=== PATIENT | male | born 1970 | race Caucasian/White ===

== ENCOUNTER 2022-07-16 13:59 | Outpatient (CLI) | payer OTHER, SELFPAY ==
[2022-07-16 15:58] LABS: Influenza A QL RT-PCR Negative (Negative); Influenza B QL RT-PCR Negative (Negative); SARS-CoV-2 RNA PCR Positive
== END 2022-07-16 14:00 | disposition home or self-care (01) ==
LOC: ANHLAB 14:00
PROVIDERS: PCP Family Medicine; Visit Provider Family Medicine
DX: U07.1 COVID-19 (principal)
CPT/HCPCS: 87636

== ENCOUNTER 2024-02-24 10:05 | Outpatient (CLI) | payer OTHER, SELFPAY ==
--- NOTE | 2024-02-28 14:36 | WPDHOMESLEEP ---
Sleep Study - Home Unattended Date of Study: 02/24/24 Ordering Provider: Fredy Thompson MD Interpreting Provider: Arlette Chew MD Home Sleep Study Type: Watch PAT Height: 1.78 m Weight: 99.337 kg Body Mass Index: 31.4 Neck Circumference (inches): 18 [place]: 17 Reason for Sleep Study Hypersomnolence Sleep History Logan Melendez is a 53-year-old man who has excessive daytime sleepiness. His medical comorbidities include hypertension, diabetes mellitus with retinopathy, and non alcoholic steatohepatitis. His reports witnessed apneas. There is a family history of obstructive sleep apnea. He does have episodes of choking and gasping at night for breath. He has difficulty breathing if he is on his back. Does not awaken with a morning headache. He does wake with a sore dry mouth. He has nocturnal heartburn. He has 2 episodes of nocturia on average. He does not use sedatives to initiate sleep. He does not generally have problems falling asleep but he has difficulty remaining asleep. He also has difficulty returning to sleep when he wakes during the night. He wakes up earlier than expected. He does not grind his teeth or clench his teeth at night. He does not have problems with uncomfortable feelings in his legs or kicking at night. His usual bedtime is midnight falling asleep within 15 minutes spending 8 hours in bed and approximately 7 hours sleeping. His sleep is not restorative. He has frequent excessive daytime sleepiness and fatigue. Does not feel refreshed upon awakening. He has drowsy driving. He feels more alert in the evening compared to the morning. He does not nap. Habits: Tobacco: never smoker Caffeine: 1-2 cups daily Alcohol: none PMFSH Past Medical History Medical History Diabetic retinopathy associated with type 2 diabetes mellitus Obesity (BMI 30.0-34.9) Family History Family History Sibling Diabetes mellitus Acute myocardial infarction Family history of congestive heart failure Father Diabetes mellitus Hypertension Cerebrovascular accident Family history of seizure disorder Family history of atrial fibrillation Family history of congestive heart failure Mother Family history of coronary artery disease Other Depression Social History Social History Social History: Caffeine- daily Smoking status: Never smoker Alcohol intake: never Lack of Transportation: No Lack of Food: Never True Current Housing: I Have Housing Concerned About Future Housing: No Difficulty Paying Gas/Electric Bills: No Difficulty Paying for Meds: No Currently Unemployed: No Education: Associate Degree Difficulty w/ Childcare or Family Care: No Medications Home Medications Medication Instructions Recorded Confirmed Type aspirin 81 mg tablet,delayed 81 mg PO DAILY 05/04/19 01/06/24 History release (Adult Low Dose Aspirin) blood-glucose meter,continuous #1 ea 01/11/22 01/06/24 Rx (Dexcom G6 [employer]ician) bupropion HCl 300 mg 24 hr tablet, See Rx Instructions .Route 03/12/22 01/06/24 Rx extended release .COMPLEX #90 tabs sertraline 100 mg tablet See Rx Instructions .Route 11/27/22 01/06/24 Rx .COMPLEX #90 tabs aripiprazole 5 mg tablet (Abilify) 10 mg PO QHS #30 tabs 01/07/23 01/06/24 Rx blood-glucose sensor (Dexcom G7 #9 ea 01/28/23 01/06/24 Rx Sensor device) tadalafil 20 mg tablet 20 mg PO DAILY PRN sexual activity 02/21/23 01/06/24 Rx 30 days #6 tabs pantoprazole 40 mg tablet,delayed 40 mg PO QAM #90 tabs 09/06/23 01/06/24 Rx release dapagliflozin propanediol 10 mg 10 mg PO DAILY #90 tabs 10/29/23 01/06/24 Rx tablet (Farxiga) lisinopril 40 mg tablet 40 mg PO DAILY #90 tabs 10/29/23 01/06/24 Rx metformin 1,000 mg
[2024-02-28 18:46] VITALS: BMI 31.4
== END 2024-02-26 10:05 | disposition home or self-care (01) ==
LOC: ANHCSM 10:11
PROVIDERS: PCP Family Medicine; Visit Provider Family Medicine
DX: G47.33 Obstructive sleep apnea (adult) (pediatric) (principal)
CPT/HCPCS: 95800

== ENCOUNTER 2024-04-01 09:36 | Outpatient (CLI) | payer OTHER, SELFPAY ==
--- NOTE | 2024-04-01 09:43 | ECHO_ITS ---
Patient Info Name: Logan Melendez Age: 53 years : 1970 Gender: Male Ht: 72 in Wt: 220 lbs BSA: 2.27 m2 HR: 78 bpm BP: 153 / 88 mmHg Technical Quality: Good Exam Date: 04/01/2024 10:04 AM Exam Location: Echo Lab Patient Status: Outpatient Admit Date: 04/01/2024 Staff Ordering Physician: Fredy Thompson MD Corporate Officer: Diony Day RDCS Attending Provider: Fredy Thompson MD Referring Physician: Jay QUINTANA; Exam Type: CA echo doppler color flow Study Info Indications - unsp a fib Complete two-dimensional, color flow and Doppler transthoracic echocardiogram is performed. Summary 1. Complete two-dimensional, color flow and Doppler transthoracic echocardiogram is performed. 2. Left ventricular chamber dimension is normal. 3. Left ventricular systolic function is normal, estimated at 60-65%. 4. The left ventricular diastolic function is grade I diastolic dysfunction. 5. E/e' 9 is minimally elevated. 6. Left atrial chamber dimension is mildly enlarged. 7. There is trace mitral valve regurgitation. 8. There is trace tricuspid valve regurgitation. 9. No pulmonary hypertension, estimated pulmonary arterial systolic pressure is 19 mmHg. Left Ventricle E/e' 9 is minimally elevated. Left ventricular chamber dimension is normal. Left ventricular systolic function is normal, estimated at 60-65%. The left ventricular diastolic function is grade I diastolic dysfunction. Right Ventricle Right ventricular systolic function is normal and with normal TAPSE 2.2 cm. Right ventricular chamber dimension is normal. Left Atria Left atrial chamber dimension is mildly enlarged. Right Atria Right atrial chamber dimension is normal. Aortic Valve The aortic valve is trileaflet. There is no aortic valve stenosis. There is no aortic valve regurgitation. Pulmonic Valve There is no pulmonic regurgitation. Mitral Valve There is no mitral valve stenosis. There is trace mitral valve regurgitation. Tricuspid Valve There is trace tricuspid valve regurgitation. No pulmonary hypertension, estimated pulmonary arterial systolic pressure is 19 mmHg. Pericardium/Pleural There is no pericardial effusion. Inferior Vena Cava Normal inferior vena cava with >50% collapse upon inspiration consistent with normal right atrial pressure, 5 mmHg. Aorta The aortic root size at the sinus of Valsalva is normal. Left Ventricular Outflow Tract Name Value Normal LVOT 2D LVOT Diameter 2.0 cm LVOT Doppler LVOT Peak Gradient 3 mmHg LVOT Mean Gradient 2 mmHg LVOT VTI 18 cm LVOT VTI/AV VTI Ratio 0.5 LVOT Stroke Volume 56 ml LVOT CO 4.9 l/min LVOT CI 2.1 l/min/m2 Mitral Valve Name Value Normal MV Doppler MV Decel [place] 491 cm/s2 MV PHT 37 ms MV Area (PHT) 5.9 cm2 4.0-5.0 MV Diastolic Function MV E Peak Velocity 63 cm/s MV A Peak Velocity 90 cm/s MV E/A 0.7 MV Decel Time 128 ms MV Annular TDI MV E/e' (Septal) 10.4 <=8.0 MV E/e' (Lateral) 9.2 <=8.0 MV E/e' (Average) 9.8 Tricuspid Valve Name Value Normal TV Regurgitation Doppler TR Peak Velocity 186 cm/s TR Peak Gradient 8 mmHg Estimated PAP/RSVP RA Pressure 5 mmHg <=5 PA Systolic Pressure 19 mmHg <36 RV Systolic Pressure 19 mmHg <36 Aortic Valve Name Value Normal AV Doppler AV Peak Velocity 187 cm/s AV Peak Gradient 14 mmHg AV Mean Gradient 10 mmHg AV VTI 39 cm AV Area (Cont Eq VTI) 1.4 cm2 >=3.0 AV Area (Cont Eq Rg) 1.5 cm2 AV Regurgitation 2D LVOT Area 3.1 cm2 Ventricles Name Value Normal LV Dimensions 2D/MM IVS Diastolic Thickness (2D) 1.0 cm 0.6-1.0 LVID Diastole (2D) 4.9 cm 4.2-5.8 LVIW Diastolic Thickness (2D) 1.0 cm 0.6-1.0 LVID Systole (2D) 3.0 cm 2.5-4.0 LVOT Diameter 2.0 cm LV Mass (2D Cubed) 176.15 g 88.00-224.00 LV Mass Index (2D Cubed) 77 g/m2 49-115 Relative Wall Thickness (2D) 0.42 LV Fractional Shortening/Ejection Fraction 2D/MM LV Fractional Shortening (2D) 38 % 25-43 LV EF (2D Teicholz) 69 % 52-72 LV Diastolic Volume (4C MOD) 111 ml LV EF (4C MOD) 66 % LV Diastolic Volume (2C MOD) 139 ml LV EF (2C MOD) 65 % LV Diastolic Volume (BP MOD) 127 ml 62-150 LV Diastolic Volume Index (BP MOD) 56 ml/m2 34-74 LV Systolic Volume (BP MOD) 44 ml 21-61 LV Systolic Volume Index (BP MOD) 19 ml/m2 11-31 LV EF (BP MOD) 65 % 52-72 LV Diastolic Length (4C) 8.6 cm LV Systolic Length (4C) 6.3 cm LV Stroke Volume (4C MOD) 73 ml Atria Name Value Normal LA Dimensions LA Volume (4C A-L) 36 ml LA Volume (BP A-L) 41 ml RA Dimensions RA Area (4C) 11.5 cm2 <=18.0 Report Signatures
== END 2024-04-01 09:37 | disposition home or self-care (01) ==
PROVIDERS: PCP Family Medicine; Visit Provider Family Medicine
DX: I48.91 Unspecified atrial fibrillation (principal); I51.9 Heart disease, unspecified; I51.7 Cardiomegaly
CPT/HCPCS: 93306

== ENCOUNTER 2024-04-16 07:53 | Outpatient (CLI) | payer OTHER, SELFPAY ==
[2024-05-10 20:19] VITALS: BMI 29.8
--- NOTE | 2024-05-10 20:19 | P.SLEEP_ITS ---
Sleep Study Date of Study: 04/16/24 Ordering Provider: Fredy Thompson MD Interpreting Physician: Marisela Marcial DO Sleep Study Type: CPAP Titration Height: 1.83 m Weight: 99.79 kg Body Mass Index: 29.8 Neck Circumference (inches): 18 [place]: 17 Reason for Sleep Study The patient had a WatchPAT home sleep test on 02/24/2024 that showed an overall AHI of 5 with desaturation down to 85%. Suspected Afib for 2 min. Sleep History Logan Melendez is a 53-year-old man who has excessive daytime sleepiness. His medical comorbidities include hypertension, diabetes mellitus with retinopathy, and non alcoholic steatohepatitis. His reports witnessed apneas. There is a family history of obstructive sleep apnea. He does have episodes of choking and gasping at night for breath. He has difficulty breathing if he is on his back. Does not awaken with a morning headache. He does wake with a sore dry mouth. He has nocturnal heartburn. He has 2 episodes of nocturia on average. He does not use sedatives to initiate sleep. He does not generally have problems falling asleep but he has difficulty remaining asleep. He also has difficulty returning to sleep when he wakes during the night. He wakes up earlier than expected. He does not grind his teeth or clench his teeth at night. He does not have problems with uncomfortable feelings in his legs or kicking at night. His usual bedtime is midnight falling asleep within 15 minutes spending 8 hours in bed and approximately 7 hours sleeping. His sleep is not restorative. He has frequent excessive daytime sleepiness and fatigue. Does not feel refreshed upon awakening. He has drowsy driving. He feels more alert in the evening compared to the morning. He does not nap. Habits: Tobacco: never smoker Caffeine: 1-2 cups daily Alcohol: none PMFSH Past Medical History Medical History Diabetic retinopathy associated with type 2 diabetes mellitus Obesity (BMI 30.0-34.9) Family History Family History Sibling Diabetes mellitus Acute myocardial infarction Family history of congestive heart failure Father Diabetes mellitus Hypertension Cerebrovascular accident Family history of seizure disorder Family history of atrial fibrillation Family history of congestive heart failure Mother Family history of coronary artery disease Other Depression Social History Social History Social History: Caffeine- daily Smoking status: Never smoker Alcohol intake: never Lack of Transportation: No Lack of Food: Never True Current Housing: I Have Housing Concerned About Future Housing: No Difficulty Paying Gas/Electric Bills: No Difficulty Paying for Meds: No Currently Unemployed: No Education: Associate Degree Difficulty w/ Childcare or Family Care: No Medications Home Medications Medication Instructions Recorded Confirmed Type bupropion HCl 300 mg 24 hr tablet, See Rx Instructions .Route 03/12/22 03/04/24 Rx extended release .COMPLEX #90 tabs sertraline 100 mg tablet See Rx Instructions .Route 11/27/22 03/04/24 Rx .COMPLEX #90 tabs aripiprazole 5 mg tablet (Abilify) 10 mg PO QHS #30 tabs 01/07/23 03/04/24 Rx tadalafil 20 mg tablet 20 mg PO DAILY PRN sexual activity 02/21/23 03/04/24 Rx 30 days #6 tabs pantoprazole 40 mg tablet,delayed 40 mg PO QAM #90 tabs 09/06/23 03/04/24 Rx release tirzepatide 10 mg/0.5 mL See Rx Instructions .Route 02/18/24 03/04/24 Rx subcutaneous pen injector .COMPLEX #6 mL (Mounjaro) dapagliflozin propanediol 10 mg 10 mg PO DAILY #90 tabs 03/30/24 Rx tablet (Farxiga) lisinopril 40 mg tablet 40 mg PO DAILY #90 tabs 03/30/24 Rx metformin 1,000 mg tablet See Rx Instructions .Route 03/30/24 Rx .COMPLEX #180 tabs metoprolol succinate 50 mg See Rx Instructions .Route 03/30/24 Rx tablet,extended release 24 hr .COMPLEX #90 tabs rivaroxaban 20 mg tablet (Xarelto) 20 mg PO DAILY #90 tabs 05/05/24 Rx Sleep Procedure A full night CPAP Titration using the [employer] multi-channel system recorded the standard physiologic parameters including EEG, EOG, submentalis EMG, anterior tibialis EMG, EKG, body position, nasal and oral airflow using nasal pressure sensor and thermistor.? Respiratory parameters of chest and abdominal movements were recorded with Respiratory Inductance Plethysmography belts. Oxygen saturation was recorded by pulse oximetry. Video monitoring was also performed. Sleep stages, periodic limb movements, and EEG arousals were scored in 30 second epochs according to the criteria of the AASM Scoring Manual. The Apnea-Hypopnea Index was calculated using [facility] guidelines for definition of hypopnea with 4% O2 desaturations while scoring respiratory events. Sleep Architecture The total recording time was 462.9 minutes.? The total sleep time was 323.0 minutes. Sleep latency was 25.3 minutes. REM latency was 44.5 minutes. Sleep efficiency was 69.8%. The patient had 42 awakenings for an awakening index of 7.8. Wake after Sleep Onset time was 114.5 minutes. The patient spent 40.5 minutes, 12.5% of total sleep time in Stage N1. The patient spent 245.0 minutes, 75.9% in Stage N2. The patient spent 0.0 minutes, 0.0% in Stage N3. The patient spent 37.5 minutes, 11.6% in Stage REM. Respiratory Analysis The patient had 25 hypopneas, 4 obstructive apneas, 1 mixed apnea and 9 central apneas for an overall Apnea Hypopnea Index of 7.2 events per hour. The REM Apnea Hypopnea Index was 0. The NREM Apnea Hypopnea Index was 8.2. The patient had a Central Apnea Hypopnea Index of 1.7. There were 17 Respiratory Effort Related Arousals resulting in a RERA index of 3.2 events per hour. The Respiratory Disturbance Index is 10.4 events per hour. There was no evidence of Sp- Arceo Respirations. The patient was started on CPAP 5 cm H2O and titrated to CPAP 13 cm H2O due to obstructive apneas, central apneas and hypopneas. The patient was able to fall asleep starting on CPAP 5 cm H2O. The patient was able to achieve REM sleep starting on CPAP 13 cm H2O. The patient was able to achieve a residual AHI less than 5 with both NREM and REM sleep on the final pressure. On CPAP 13 cm H2O, the patient spent 142.5 minutes in NREM and 37 minutes in REM with 1 obstructive apnea and 6 hypopneas, resulting in an AHI of 2.3. The patient had a sleep efficiency of 67.4% on this pressure setting. Arousals There were 282 total arousals for an arousal index of 52.4. There were 92 spont aneous arousals for an index of 17.1. ?There were 48 arousals due to respiratory events for an index of 8.9. There were 80 arousals due to periodic limb movements for an index of 14.9.? There were 40 arousals due to isolated limb movements for an index of 7.4. Periodic Limb Movements The patient had 67 isolated limb movements with an index of 12.4. The patient had 188 periodic limb movements with index of 34.9, which is elevated (normal < 15). Patient had a total of 255 limb movements with a total limb movement index of 47.4. Oximetry Data The patient had an average oxygen saturation of 92.1% in sleep with a minimum oxygen saturation of 85.0% and a maximum oxygen saturation of 96.0%. The patient had 28 oxygen desaturations that were 4% or greater resulting in an Oxygen Desaturation Index of 5.2.? The patient spent 3.6 minutes, 0.8% of total sleep time with an oxygen saturation below 88%. Snoring Profile Snoring was not present during this study. Cardiac Profile The EKG showed normal sinus rhythm with rare PACs and PVCs. The patient had an average pulse rate of 84.3 bpm with a minimum pulse rate of 73.0 bpm and a maximum pulse rate of 97.0 bpm. ? EEG Profile No signs of seizure activity seen. Assessment and Plan Assessment and Plan (1) Obstructive sleep apnea: Code(s): G47.33 - Obstructive sleep apnea (adult) (pediatric) Status: Acute Assessment and Plan: The patient was started on CPAP 5 cm H2O and titrated to CPAP 13 cm H2O due to obstructive apneas, central apneas and hypopneas. The patient's sleep apnea resolved on the final pressure. I recommend that the patient be prescribed CPAP 13 cm H2O, size medium F&P April FFM, CPAP filters/tubing and heated humidity. This should be used with all episodes of sleep.? Compliance should be reviewed within 31-90 days of starting therapy for usage greater than 4 hours per night greater than 70% of the nights. The patient should be asked about symptoms such as?excessive daytime sleepiness, quality of sleep, decreased nocturia, increased?mental functioning such as memory, mood, and concentration. The patient had a significant amount of periodic limb movements seen during this study. This can be seen when a patient is first starting CPAP Therapy. The patient's sleep history is not suggestive of Restless Legs Syndrome. I recommend asking the patient about leg movements during his first CPAP Compliance visit. Data The data obtained during this sleep study is adequate for interpretation. Certification This sleep study has been reviewed by a board certified sleep medicine physician.
== END 2024-04-17 06:42 | disposition home or self-care (01) ==
LOC: ANHCSM 07:54
PROVIDERS: PCP Family Medicine; Visit Provider Family Medicine
DX: G47.33 Obstructive sleep apnea (adult) (pediatric) (principal); E11.21 Type 2 diabetes mellitus with diabetic nephropathy; E66.9 Obesity, unspecified; I48.91 Unspecified atrial fibrillation
CPT/HCPCS: 95811